=== PATIENT | male | born 1965 | race Caucasian/White ===

== ENCOUNTER → 2017-11-03 | Outpatient (CLI) | payer BC ==
[~2017-11-03] MED LIST: MULT1CAP17 PO
--- NOTE | 2017-11-03 14:01 | DIAGNOSTIC IMAGING REPORT ---
CHEST 2 VIEWS ROUTINE CLINICAL HISTORY: Preoperative evaluation. COMPARISON STUDY: No previous studies for comparison. FINDINGS: Lung volumes are normal. Lungs are clear. No pneumothorax or pleural effusion is present. Pulmonary vascularity is normal. Cardiomediastinal silhouette is normal. There is mild rightward curvature of the thoracic spine. IMPRESSION: No acute cardiopulmonary findings. Electronically signed by: Malik Miller M.D. 11/03/2017 2:00 PM Dictated Date/Time: 11/03/2017 1:59 PM
[2017-11-03 14:04] LABS: BASO ABS # 0.07 K/uL (0-0.2); COMPLETE YES; EOS % 4.1 %; HEMATOCRIT 39.9 % (42-52); IG% 0.3 %; LYMPH % 28.3 %; LYMPH ABS # 1.95 K/uL (1.2-3.4); MEAN CELL VOLUME 91.5 fL (80-100); MEAN CORPUSCULAR HEMOGLOBIN 30.5 pg (25-34); MEAN CORPUSCULAR HGB CONC 33.3 g/dl (32-36); MEAN PLATELET VOLUME 8.8 fL (7.4-10.4); MONO % 7.1 %; NEUT % 59.2 %; PLATELET COUNT 238 K/uL (130-400); RED BLOOD COUNT 4.36 M/uL (4.7-6.1); WHITE BLOOD COUNT 6.89 K/uL (4.8-10.8)
[2017-11-03 14:07] LABS: URINE APPEARANCE CLEAR (CLEAR); URINE BILIRUBIN NEG (NEG); URINE COLOR YELLOW; URINE NITRITE NEG (NEG); URINE SPECIFIC GRAVITY 1.023 (1.000-1.030); UROBILINOGEN NEG (NEG); ZZUR CULT IF INDIC CLEAN CATCH NO
[2017-11-03 14:08] LABS: MANUAL MICROSCOPIC REQUIRED? NO; REVIEW REQ? NO
[2017-11-03 14:13] LABS: PARTIAL THROMBOPLASTIN RATIO 1.1; PROTHROMBIN TIME (PATIENT) 10.3 SECONDS (9.0-12.0)
[2017-11-03 15:56] LABS: BLOOD UREA NITROGEN 13 mg/dl (7-18); CALCIUM 8.9 mg/dl (8.5-10.1); CARBON DIOXIDE 30 mmol/L (21-32); CHLORIDE 103 mmol/L (98-107); CREATININE 0.88 mg/dl (0.60-1.40); GLUCOSE 98 mg/dl (70-99); POTASSIUM 3.9 mmol/L (3.5-5.1); SODIUM 138 mmol/L (136-145)
[2017-11-04 06:15] LABS: ESTIMATED AVERAGE GLUCOSE 123 mg/dl; HA1C FLAG Normal (Normal)
== END | disposition home or self-care (01) ==
LOC: C.LAB 08:00
PROVIDERS: ATTEND Orthopaedic Surgery Sports Medicine

== ENCOUNTER 2017-12-02 04:57 | Inpatient (IN) | payer BC, OTHER ==
[2017-11-03 13:03] VITALS: BMI 24.0
--- NOTE | 2017-11-03 13:32 | PAT Medication Instructions ---
Service Date Nov 03, 2017. Current Home Medication List Multiple Vitamins W/ Minerals (Multi For Him), 1 TAB PO QAM Medication Instructions For Your Scheduled Surgery - Hold the following medications the morning of surgery: Multiple Vitamins W/ Minerals (Multi For Him), 1 TAB PO QAM nothing to eat or drink after midnight If you have any questions please call us at [phone] or [phone] or [phone]
--- NOTE | 2017-12-01 17:57 | HISTORY & PHYSICAL EXAMINATION ---
DATE OF ADMISSION: 12/02/2017 CHIEF COMPLAINT: Chronic right knee pain. HISTORY OF PRESENT ILLNESS: This is a 52-year-old male patient of Dr. Frye'robyn complaining of chronic right knee pain, longstanding, now progressively getting worse. The patient has been diagnosed with end-stage osteoarthritis per clinical and radiographic exams. The patient has failed conservative treatment including intraarticular injections, the use of anti-inflammatories, the use of a brace and the use of over the counter herbal such as turmeric. The patient has increased pain with weightbearing activities and his pain does interfere with his activities of daily living. PAST MEDICAL HISTORY: Sleep apnea with the use of CPAP, osteoarthritis, otherwise a healthy 52-year-old male. SOCIAL HISTORY: Nonsmoker, nondrinker. FAMILY HISTORY: Noncontributory. REVIEW OF SYSTEMS: The patient complains of chronic right knee pain, otherwise denies any shortness of breath, chest pain, nausea, vomiting or any other joint complaints. PAST SURGICAL HISTORY: Two arthroscopic surgeries on the right knee and one arthroscopic surgery on the left knee. MEDICATIONS: Include a multivitamin; otherwise, no prescription medicines. ALLERGIES: No known drug allergies. PHYSICAL EXAMINATION: GENERAL: Well-developed, well-nourished 52-year-old male in no acute distress. He is alert and oriented x3 and pleasant. HEENT: Normocephalic, atraumatic. Extraocular motions are intact. Pupils are equal and reactive to light. HEART: Regular rate and rhythm, no murmurs appreciated. LUNGS: Clear. ABDOMEN: Soft, nontender, bowel sounds present. EXTREMITIES: Right knee shows crepitation with passive range of motion. Range of motion is negative 5-120 degrees. He has a varus deformity. Ligaments are stable. He has 5/5 strength. NEUROLOGICALLY: Neurovascularly, he is intact in his right lower extremity. DIAGNOSES: Right knee end-stage osteoarthritis with a history of sleep apnea with the use of CPAP. PLAN: The patient was advised of his diagnosis. Indications, risks, benefits, and postop course have all been reviewed. The patient wishes to proceed with a right total knee arthroplasty. Necessary consent forms, preoperative testing and clearances will be obtained.
[~2017-12-02] VITALS: Ht 175.3 cm; Wt 74.0 kg
[2017-12-02] VITALS (8 sets, daily range): BP systolic 105–129; BP diastolic 62–88; PULSE 59–83; TEMP 36.4–36.9; O2SAT 98–100; Ht 175.3 cm; Wt 74.0 kg
[2017-12-02] MEDS ORDERED: LACTATED RINGER'S 1000ML 500 ML IV SCH (06:00)
[2017-12-02] MEDS ORDERED: FAMOTIDINE 20 MG TAB PO SCH (06:00)
[2017-12-02] MEDS ORDERED: CeleBREX 200 MG CAP PO SCH (06:00)
[2017-12-02] MEDS ORDERED: ROPIVACAINE 5MG/ML 30 ML 150 MG, BUPIVACAINE 0.5% MPF INJ 30 ML, EpINEphrine HCL INJ 0.... INFIL SCH ×8 (06:00)
[2017-12-02] MEDS ORDERED: LACTATED RINGER'S 1000ML IV SCH (06:00)
[2017-12-02] MEDS ORDERED: GABAPENTIN 300 MG CAP PO SCH (06:00)
[2017-12-02] MEDS ORDERED: METOCLOPRAMIDE HCL 10 MG TAB PO SCH (06:00)
[2017-12-02] MEDS ORDERED: DEXAMETHASONE 4 MG TAB PO SCH (06:00)
[2017-12-02] MEDS ORDERED: ACETAMINOPHEN 500 MG TAB PO SCH (06:00)
[2017-12-02] MEDS ORDERED: CEFAZOLIN 1000MG IV PUSH 5 ML IV SCH (06:00)
[2017-12-02] MEDS ORDERED: LACTATED RINGER'S 1000ML 1,000 ML IV SCH (06:00)
[2017-12-02] MEDS ORDERED: BUPIVACAINE 0.5 % 5 MG/1 ML PF 10ML VIAL ONE (06:03)
[2017-12-02] MEDS ORDERED: BUPIVACAINE 0.25% 30 ML VIAL ONE (06:03)
[2017-12-02] MEDS: TRANEXAMIC ACID INJ 1,000 MG in SYRINGE 0 ML IV SCH ×2 (06:50→10:52)
[2017-12-02] MEDS ORDERED: ORTHO JOINT ANESTHETIC ONE (06:59)
[2017-12-02] MEDS ORDERED: POVIDONE-IODINE OP SOLN 30 ML BTL ONE (06:59)
[2017-12-02] MEDS ORDERED: BACITRACIN 50000 UNIT VIAL ONE (07:00)
[2017-12-02] MEDS ORDERED: PHENYLEPHRINE HCL INJ 10 MG/ML VIAL ONE (07:13)
[2017-12-02] MEDS ORDERED: GLYCOPYRROLATE INJ 0.2 MG/ML VIAL ONE (07:13)
[2017-12-02] MEDS ORDERED: LIDOCAINE HCL 2% 2 ML VIAL (20MG/ML) ONE (07:13)
[2017-12-02] MEDS ORDERED: SUCCINYLCHOLINE CHLORIDE 20 MG/ML 10 ML VIAL IV ONE (07:13)
[2017-12-02] MEDS ORDERED: MIDAZOLAM HCL 1 MG/ML 2ML VIAL ONE (07:13)
[2017-12-02] MEDS ORDERED: EpHEDrine SULFATE INJ 50 MG/ML AMP ONE (07:13)
[2017-12-02] MEDS ORDERED: DEXAMETHASONE SOD INJ 4 MG/ML VIAL ONE (07:13)
[2017-12-02] MEDS ORDERED: PROPOFOL IV EMULSION 10 MG/ML 20 ML VIAL IV ONE ×2 (07:13→09:14)
[2017-12-02] MEDS ORDERED: FENTANYL CITRATE INJ 50 MCG/1 ML 2 ML VIAL ONE (07:13)
[2017-12-02] MEDS ORDERED: NEOSTIGMINE METHYLSULFATE 5 MG/5 ML SYR ONE (07:13)
[2017-12-02] MEDS ORDERED: ONDANSETRON INJ 2 MG/ML 2 ML VIAL ONE (07:13)
--- NOTE | 2017-12-02 07:29 | History & Physical Bridge Note ---
H&P Re-Evaluation Bridge Note: I have examined the patient, reviewed the History & Physical and in the interval since the performance of the History & Physical I have noted the following changes of clinical significance: No changes noted
[2017-12-02] MEDS ORDERED: FENTANYL CITRATE INJ 50 MCG/1 ML 2 ML VIAL IV PRN (07:30)
[2017-12-02] MEDS ORDERED: ATROPINE SULFATE 0.1 MG/ML 5ML SYR IV PRN (07:30)
[2017-12-02] MEDS ORDERED: EpHEDrine SULFATE INJ 50 MG/ML AMP IV PRN (07:30)
[2017-12-02] MEDS ORDERED: ONDANSETRON INJ 2 MG/ML 2 ML VIAL IV PRN ×2 (07:30→10:00)
--- NOTE | 2017-12-02 09:55 | [facility] Post Operative Brief Note ---
Immediate Operative Summary Operative Date Dec 02, 2017. Pre-Operative Diagnosis Right knee end stage osteoarthritis,lateral meniscal cyst,chronic acl tear Post-Operative Diagnosis same as preop Procedure(s) Performed Right total knee arthroplasty,excision lateral meniscal cyst Surgeon Dr. Frye Linesperson Surgeon(s) Fabrice Lew PA-C Estimated Blood Loss 10 ml Findings as above, grade 4 djd medial compartment and chronic acl tear Specimens A: Right knee bone and tissue Drains 2 hemovac Anesthesia spinal adductor block Complication(s) None Disposition Recovery Room / PACU
[2017-12-02] MEDS ORDERED: SOD PHOSPHATE/SOD BIPHOSPHATE ENEMA 132 ML BTL PR PRN (10:00)
[2017-12-02] MEDS ORDERED: ZOLPIDEM TARTRATE 5 MG TAB PO PRN (10:00)
[2017-12-02] MEDS ORDERED: BISACODYL 10 MG SUPP PR PRN (10:00)
[2017-12-02] MEDS ORDERED: MoRPHine SULFATE 2 MG/ML CARP IV PRN (10:00)
[2017-12-02] MEDS ORDERED: CEFAZOLIN IV 1,000 MG in DEXTROSE 5% 50ML 50 ML IV SCH (10:00)
[2017-12-02] MEDS ORDERED: METOCLOPRAMIDE HCL INJ 5 MG/ML 2 ML VIAL IV PRN (10:00)
[2017-12-02] MEDS ORDERED: MAGNESIUM HYDROXIDE SUSP 30 ML UDC PO PRN (10:00)
--- NOTE | 2017-12-02 10:32 | DIAGNOSTIC IMAGING REPORT ---
R KNEE 1 OR 2 VIEWS ROUTINE CLINICAL HISTORY: Degenerative arthritis. Postoperative study COMPARISON: None. DISCUSSION: There are postsurgical changes of a total right knee arthroplasty and patellar resurfacing. The femoral and tibial components appear well seated. Overlying skin elias and surgical drains are evident. There is air within the soft tissues consistent with recent surgery. IMPRESSION: Postsurgical changes of a total right knee arthroplasty. Electronically signed by: Jerry Hickman M.D. 12/02/2017 10:31 AM Dictated Date/Time: 12/02/2017 10:30 AM
--- NOTE | 2017-12-02 10:44 | OPERATIVE REPORT ---
DATE OF OPERATION: 12/02/2017 INDICATION FOR PROCEDURE: The patient is a 52-year-old male with chronic right knee pain. He has a history of previous right knee surgery in the past. He has had progressive osteoarthritis in his knee. He has a significant varus thrust, lateral collateral ligament laxity, tight medial compartment with some pseudolaxity, chronic ACL tear, prior incisions from prior open surgery, surgical procedure unknown. Radiographs demonstrate [id number] in the medial compartment with some subluxation of the femur and the tibia. PREOPERATIVE DIAGNOSIS: Right knee end-stage osteoarthritis with knee instability, chronic anterior cruciate ligament tear and also a lateral meniscal cyst. POSTOPERATIVE DIAGNOSIS: Same. PROCEDURE: Right total knee arthroplasty, excision lateral meniscus cyst. SURGEON: Robles Frye MD. HOSE INSPECTOR AND PATCHER: SHAQ Carrillo. ANESTHESIA: Spinal, adductor nerve block and Orthomix. OPERATIVE PROCEDURE: The patient was taken to the operating room, anesthetized under anesthesia as dictated. She was placed supine on the operating room table. Pneumatic tourniquet was placed about right upper thigh. Knee exam demonstrated he did have some knee hyperextension, he did have some pseudolaxity medially, but had significant lateral collateral ligament laxity and marked varus alignment to his right knee. He had 2 incisions from prior open surgery. Positive Miranda exam. No endpoint. His right lower extremity was prepped and draped with ChloraPrep in usual sterile fashion. We did have a pneumatic tourniquet about his right upper thigh. His leg was elevated, exsanguinated with Esmarch bandage. Pneumatic tourniquet was raised to 300 mmHg. Anterior incision made across the right knee. Skin was incised sharply. Subcutaneous flaps were thin. Fat tissues were elevated. A paramedian arthrotomy type incision was made through the medial retinaculum extended up into the mid third of the quadriceps tendon and down to the medial tibial tubercle. Intraarticular findings demonstrated absent ACL [id number] medial compartment subluxation of femur medial and the tibia and he had a large meniscal cyst which was about 2 cm, this was a complex cyst anterior to the lateral collateral ligament extending to the lateral meniscus with a degenerative lateral meniscus tear. There were some multiloculated cysts that were adjacent to the capsule in that area. There were some tricompartmental osteophytes. The PCL was still intact. There was jeoc-qu-dpph medial compartment. I used the John [employer] Nephew Journey 2.0, total knee arthroplasty system using Guides[employer]coaire MRI templating. Femur templated for a 6, tibia for a 5. The exposure performed required excising the scarred infrapatellar fat pad, excising the meniscal remnants on the medial side. The lateral meniscus was excised. I carefully dissected around the lateral knee area. We used surgical scissors and electrocautery as well and identified the cyst being adjacent to the IT band anterior to the lateral collateral ligament. This was dissected out and followed out into the lateral meniscus area where there was degeneration of the lateral meniscus and some other multiloculated cyst which were all resected completely. The lateral meniscus was resected. The PCL was resected. There were some lateral synovial bands that were released. There were some diffuse adhesions in the lateral suprapatellar pouch that were removed and small portion of the fat pad over the anterior femur was resected to place the femoral component in that area just above the joint line. The femur was exposed with retractors. The custom femoral cutting block was pinned in position and the distal femoral cut was made. The size 6 5-1 cutting block was pinned in position for the Journey 2.0 John [employer] Nephew knee replacement. The anterior, posterior and chamfer cuts were made. The patient had very hard bone and we had to irrigate during the bone cuts. The knee was then extended. Then we did a subperiosteal peel lateral release around the patella. The patella cut was made reproducing the width with a 38 patellar component. Drill holes were made and the excess lateral facet was beveled off to prevent any impingement. Then the tibia was subluxed and the custom tibial cutting block was pinned in position. The proximal tibial cut was made. Then we used the lamina hat forming machine feeder to assess ligamentous balance. He had some posteromedial tightness in flexion of the knee, so we had to do a posteromedial release to balance the ligaments and pie crust the MCL as well. With the tibia exposed, then after we did the tibial cut, the tibial trial size 5 was externally rotated in line with the tibial tubercle and pinned in position and punch for the stem was used. Because of the sclerotic medial side of the tibial bone, we did place some drill holes to enhance cement fixation. This was done prior to placing the trial. After the punch for the stem was used, we placed the femoral component in place and centered it and then the notch cutting devices were used. A collet was placed and a 13 poly insert gave balanced ligaments through full range of motion and the patella tracked centrally. The trials were removed. The anesthetic cocktail of Orthomix was injected per protocol. The knee was then copiously irrigated with pulsatile lavage antibiotic solution with bacitracin. Bony surfaces were dried. The final components were cemented with Simplex G cement. The final components were the 6 Oxinium posterior stabilized John & Nephew Journey right femoral component, the 5 tibial baseplate, the 30 mm poly high flex insert posterior stabilized and the 38 patella. While the cement cured, we used Betadine soak per protocol. The knee was copiously irrigated with antibiotic solution and bacitracin. After the cement cured, the 2 drains were brought out laterally and connected to Hemovac. The quadriceps tendon and medial retinaculum were closed with interrupted [id number]-[id number] #1 Vicryl sutures. The knee was taken through full range of motion and repair was secured. The subcutaneous tissues closed with interrupted 2-0 Vicryl, skin was closed with elias and Silverlon sterile dressing was applied. The tourniquet was let down. The patient had good capillary refill to the extremity. The patient tolerated the procedure well. SHAQ Carrillo was my veterinary technician assistant and he functioned as veterinary technician assistant through the entire procedure. He assisted in patient positioning, soft tissue retraction, instrument management, assisted in the subcutaneous and skin closure and will participate in postoperative care of the patient. I attest to the content of the Intraoperative Record and any orders documented therein. Any exception s are noted below.
--- NOTE | 2017-12-02 10:50 | Anesthesiology Progress Note ---
Anesthesia Post Op Note Date & Time Dec 02, 2017 at 10:50 Vital Signs Pain Intensity: 0 Vital Signs Past 12 Hours Date Time Temp Pulse Resp B/P (MAP) Pulse Ox O2 Delivery O2 Flow Rate FiO2 12/02/17 10:40 59 15 101/61 100 Nasal Cannula 2 12/02/17 10:30 58 16 94/65 100 Nasal Cannula 2 12/02/17 10:20 58 16 101/66 100 Nasal Cannula 2 12/02/17 10:10 63 16 112/70 100 Oxymask 10 12/02/17 10:00 63 16 99/63 100 Oxymask 10 12/02/17 09:53 36.0 70 16 111/72 100 Oxymask 10 12/02/17 06:06 36.6 79 16 114/88 99 Room Air Notes Mental Status: alert / awake / arousable, participated in evaluation Pt Amnestic to Procedure: Yes Nausea / Vomiting: adequately controlled Pain: adequately controlled Airway Patency, RR, SpO2: stable & adequate BP & HR: stable & adequate Hydration State: stable & adequate Neuraxial Anesthesia: was administered, sensory block is resolving Anesthetic Complications: no major complications apparent
[2017-12-02] MEDS: D5W AND 1/2NSS + 20MEQ KCL 1,000 ML IV SCH ×2 (11:52→21:49)
[2017-12-02] MEDS: CEFAZOLIN IV 1,000 MG in SYRINGE 0 ML IV SCH (15:45)
[2017-12-02] MEDS: TRAMADOL HCL 50 MG TAB PO PRN (18:39)
[2017-12-02] MEDS: OXYCODONE HCL IR 5 MG TAB (IMMEDIATE RELEASE) PO PRN ×2 (20:13→20:46)
[2017-12-02] MEDS: ASPIRIN 81 MG ECTAB PO SCH (21:14)
[2017-12-02] MEDS: DOCUSATE SODIUM 100 MG CAP PO SCH (21:14)
[2017-12-02] MEDS: CeleBREX 200 MG CAP PO SCH (21:15)
[2017-12-03] MEDS: CEFAZOLIN IV 1,000 MG in SYRINGE 0 ML IV SCH
[2017-12-03 02:55] VITALS: BP 101/55; PULSE 66; TEMP 36.5; O2SAT 98
[2017-12-03 06:02] LABS: HEMATOCRIT 34.4 % (42-52); HEMOGLOBIN 11.3 g/dL (14.0-18.0); MEAN CELL VOLUME 89.8 fL (80-100); MEAN CORPUSCULAR HEMOGLOBIN 29.5 pg (25-34); MEAN CORPUSCULAR HGB CONC 32.8 g/dl (32-36); MEAN PLATELET VOLUME 8.8 fL (7.4-10.4); PLATELET COUNT 191 K/uL (130-400); RED CELL DISTRIBUTION WIDTH CV 12.7 % (11.5-14.5); RED CELL DISTRIBUTION WIDTH SD 41.1 fL (36.4-46.3); WHITE BLOOD COUNT 16.75 K/uL (4.8-10.8)
[2017-12-03 06:33] LABS: CALCIUM 8.4 mg/dl (8.5-10.1); CREATININE 0.92 mg/dl (0.60-1.40); POTASSIUM 4.2 mmol/L (3.5-5.1)
[2017-12-03] MEDS: D5W AND 1/2NSS + 20MEQ KCL 1,000 ML IV SCH (07:45)
--- NOTE | 2017-12-03 08:09 | Orthopedic Progress Note ---
Orthopedic Progress Note Date of Service Dec 03, 2017. Subjective Post OP Day: 1 Reports: feeling well, Denies: chest pain, SOB, nausea / vomiting, light headedness, calf pain Objective calves soft nontender, N/V intact, capillary refill less than 2 sec., dressing C /D/I, A&O x3, toes mobile, hemovac drainage (495/380cc per shift) Date Time Temp Pulse Resp B/P (MAP) Pulse Ox O2 Delivery O2 Flow Rate FiO2 12/03/17 02:55 36.5 66 18 101/55 (70) 98 Nasal Cannula 2.0 12/03/17 00:10 Nasal Cannula 2.0 12/02/17 23:06 36.6 74 18 108/62 (77) 98 Nasal Cannula 2.0 12/02/17 15:30 Nasal Cannula 2.0 12/02/17 15:16 36.4 78 18 106/66 (79) 98 Nasal Cannula 2.0 12/02/17 14:00 36.6 81 17 105/68 (80) 98 Nasal Cannula 2.0 12/02/17 13:00 36.9 83 16 129/78 (95) 98 Nasal Cannula 2.0 12/02/17 12:06 36.4 79 16 112/69 (83) 99 Nasal Cannula 12/02/17 11:30 36.4 67 16 107/65 (79) 99 Nasal Cannula 2.0 12/02/17 11:00 36.5 59 14 106/62 (77) 100 Nasal Cannula 2.0 12/02/17 11:00 Nasal Cannula 2.0 12/02/17 10:50 36.0 58 15 96/59 100 Nasal Cannula 2 12/02/17 10:40 59 15 101/61 100 Nasal Cannula 2 12/02/17 10:30 58 16 94/65 100 Nasal Cannula 2 12/02/17 10:20 58 16 101/66 100 Nasal Cannula 2 12/02/17 10:10 63 16 112/70 100 Oxymask 10 12/02/17 10:00 63 16 99/63 100 Oxymask 10 12/02/17 09:53 36.0 70 16 111/72 100 Oxymask 10 Laboratory Results 24 Hours: Test 12/03/17 05:48 Hematocrit 34.4 % Hemoglobin 11.3 g/dL Assessment & Plan Assessment: POD#1 sp right TKA Plan: PT/OT DVT proph- ASA 81mg bid Pain management- Tylenol, Mary DC planning- DC home with HH Thursday due to hemovac output.
--- NOTE | 2017-12-03 08:39 | Medical Consult ---
Consultation Date of Consultation: Dec 03, 2017. Attending Physician: Robles Frye M.D. Reason for Consultation: Patient was consulted for medical management. History of Present Illness Patient has no complaints today except for pain from his TKA. Patient denies nausea, vomiting. Social History Smoking Status: Never Smoker Smokeless Tobacco Use: No Alcohol Use: none Allergies Coded Allergies: No Known Allergies (Unverified , 11/03/17) Current Inpatient Medications Current Inpatient Medications Medications (Trade) Dose Ordered Sig/Saray Route Start Time Stop Time Status Last Admin Dose Admin Potassium Chloride/Dextrose/ Sod Cl 1,000 ml @ 100 mls/hr Q10H IV 12/02/17 12:00 12/03/17 11:59 12/02/17 21:49 100 MLS/HR Celecoxib (CeleBREX CAP) 200 mg BID PO 12/02/17 21:00 01/01/18 20:59 12/02/17 21:15 200 MG Oxycodone HCl (Roxicodone Immediate Rel Tab) 1 TABLET FOR PAIN RATING... Q4H PRN PO 12/02/17 10:00 12/16/17 09:59 12/02/17 20:46 5 MG Morphine Sulfate (MoRPHine SULFATE INJ) FOR PAIN, 2-4MG 2MG FOR P... Q2H PRN IV 12/02/17 10:00 12/16/17 09:59 Magnesium Hydroxide (Milk Of Magnesia Susp) 30 ml Q6H PRN PO 12/02/17 10:00 01/01/18 09:59 Bisacodyl (Dulcolax Supp) 10 mg DAILY PRN NM 12/02/17 10:00 01/01/18 09:59 Sodium Biphosphate/ Sodium Phosphate (Fleet Enema) 132 ml DAILY PRN NM 12/02/17 10:00 01/01/18 09:59 Docusate Sodium (coLACE CAP) 100 mg BID PO 12/02/17 21:00 01/01/18 20:59 12/02/17 21:14 100 MG Diphenhydramine HCl (Benadryl Cap) 25 mg Q8H PRN PO 12/02/17 10:00 01/01/18 09:59 Zolpidem Tartrate (Ambien Tab) 5 mg HSZ PRN PO 12/02/17 10:00 01/01/18 09:59 Multivitamins (Multivitamin Tab) 1 tab QAM PO 12/03/17 09:00 01/02/18 08:59 Ondansetron HCl (Zofran Inj) 4 mg Q6H PRN IV 12/02/17 10:00 01/01/18 09:59 Metoclopramide HCl (Reglan Inj) 10 mg Q6H PRN IV 12/02/17 10:00 01/01/18 09:59 Pantoprazole Sodium (Protonix Tab) 40 mg QAM PO 12/03/17 09:00 12/06/17 08:59 Tramadol HCl (Ultram Tab) 1 tablet for pain rating... Q4H PRN PO 12/02/17 10:00 01/01/18 09:59 12/02/17 18:39 50 MG Aspirin (Ecotrin Tab) 81 mg BID PO 12/02/17 21:00 01/01/18 20:59 12/02/17 21:14 81 MG Review of Systems Constitutional: No fever, No chills Respiratory: No cough, No sputum Cardiovascular: No chest pain, No orthopnea Abdomen: No pain, No nausea Musculoskeletal: + joint pain Genitourinary - Male: No hematuria Neurologic: No memory loss, No paralysis Psychiatric: No depression symptoms, No anhedonism Endocrine: No fatigue Hematologic / Lymphatic: No abnormal bleeding/bruising Integumentary: No rash, No itch Allergic / Immunologic: No environmental allergies Physical Exam Date Time Temp Pulse Resp B/P (MAP) Pulse Ox O2 Delivery O2 Flow Rate FiO2 12/03/17 02:55 36.5 66 18 101/55 (70) 98 Nasal Cannula 2.0 12/03/17 00:10 Nasal Cannula 2.0 12/02/17 23:06 36.6 74 18 108/62 (77) 98 Nasal Cannula 2.0 12/02/17 15:30 Nasal Cannula 2.0 12/02/17 15:16 36.4 78 18 106/66 (79) 98 Nasal Cannula 2.0 12/02/17 14:00 36.6 81 17 105/68 (80) 98 Nasal Cannula 2.0 12/02/17 13:00 36.9 83 16 129/78 (95) 98 Nasal Cannula 2.0 12/02/17 12:06 36.4 79 16 112/69 (83) 99 Nasal Cannula 12/02/17 11:30 36.4 67 16 107/65 (79) 99 Nasal Cannula 2.0 12/02/17 11:00 36.5 59 14 106/62 (77) 100 Nasal Cannula 2.0 12/02/17 11:00 Nasal Cannula 2.0 12/02/17 10:50 36.0 58 15 96/59 100 Nasal Cannula 2 12/02/17 10:40 59 15 101/61 100 Nasal Cannula 2 12/02/17 10:30 58 16 94/65 100 Nasal Cannula 2 12/02/17 10:20 58 16 101/66 100 Nasal Cannula 2 12/02/17 10:10 63 16 112/70 100 Oxymask 10 12/02/17 10:00 63 16 99/63 100 Oxymask 10 12/02/17 09:53 36.0 70 16 111/72 100 Oxymask 10 General Appearance: WD/WN, no apparent distress Head: normocephalic Neck: supple, no adenopathy Respiratory/Chest: chest non-tender, lungs clear, normal breath sounds Cardiovascular: regular rate, rhythm, no edema Abdomen/GI: normal bowel sounds, non tender, soft Extremities/Musculoskelatal: normal inspection, no calf tenderness Skin: normal color Lymphatic: no adenopathy Laboratory Results Last 24 Hours Test 12/03/17 05:48 White Blood Count 16.75 K/uL Red Blood Count 3.83 M/uL Hemoglobin 11.3 g/dL Hematocrit 34.4 % Mean Corpuscular Volume 89.8 fL Mean Corpuscular Hemoglobin 29.5 pg Mean Corpuscular Hemoglobin Concent 32.8 g/dl RDW Standard Deviation 41.1 fL RDW Coefficient of Variation 12.7 % Platelet Count 191 K/uL Mean Platelet Volume 8.8 fL Sodium Level 137 mmol/L Potassium Level 4.2 mmol/L Chloride Level 104 mmol/L Carbon Dioxide Level 28 mmol/L Anion Gap 5.0 mmol/L Blood Urea Nitrogen 13 mg/dl Creatinine 0.92 mg/dl Est Creatinine Clear Calc Drug Dose 92.9 ml/min Estimated GFR () 109.7 Estimated GFR (Non- 94.6 BUN/Creatinine Ratio 13.6 Random Glucose 141 mg/dl Calcium Level 8.4 mg/dl Assessment & Plan 52 yo patient who has a R TKA, consulted for medical management. Patient reports feeling well. Pain medicine appears to be adequate. Patient is ambulating with crutches and is using incentive spirometer to decrease risk of pneumonia. No medical conditions to be managed at this time. Will sign off case. Please call if any questions or if new concerns arise.
--- NOTE | 2017-12-03 08:50 | Anesthesiology Progress Note ---
Anesthesia Post Op Note Date & Time Dec 03, 2017 at 08:50 Vital Signs Pain Intensity: 3.0 Vital Signs Past 12 Hours Date Time Temp Pulse Resp B/P (MAP) Pulse Ox O2 Delivery O2 Flow Rate FiO2 12/03/17 07:15 Room Air 12/03/17 02:55 36.5 66 18 101/55 (70) 98 Nasal Cannula 2.0 12/03/17 00:10 Nasal Cannula 2.0 12/02/17 23:06 36.6 74 18 108/62 (77) 98 Nasal Cannula 2.0 Notes Mental Status: alert / awake / arousable, participated in evaluation Pt Amnestic to Procedure: Yes Nausea / Vomiting: adequately controlled Pain: adequately controlled Airway Patency, RR, SpO2: stable & adequate BP & HR: stable & adequate Hydration State: stable & adequate Anesthetic Complications: no major complications apparent
[2017-12-03] MEDS: PANTOprazole SOD 40 MG TAB PO SCH (08:51)
[2017-12-03] MEDS: ASPIRIN 81 MG ECTAB PO SCH ×2 (08:51→20:46)
[2017-12-03] MEDS: DOCUSATE SODIUM 100 MG CAP PO SCH ×2 (08:51→20:46)
[2017-12-03] MEDS: MULTIVITAMIN TAB PO SCH (08:51)
[2017-12-03] MEDS: CeleBREX 200 MG CAP PO SCH ×2 (08:53→20:46)
[2017-12-03] MEDS: OXYCODONE HCL IR 5 MG TAB (IMMEDIATE RELEASE) PO PRN ×3 (09:00→20:44)
[2017-12-03] MEDS: TRAMADOL HCL 50 MG TAB PO PRN (11:31)
[2017-12-03 15:04] VITALS: BP 96/55; PULSE 68; TEMP 36.4; O2SAT 96
[2017-12-03 16:14] VITALS: BP 114/70; PULSE 68; O2SAT 99
[2017-12-03 16:26] LABS: HEMATOCRIT 31.2 % (42-52); HEMOGLOBIN 10.4 g/dL (14.0-18.0); MEAN CELL VOLUME 90.7 fL (80-100); MEAN CORPUSCULAR HEMOGLOBIN 30.2 pg (25-34); MEAN CORPUSCULAR HGB CONC 33.3 g/dl (32-36); MEAN PLATELET VOLUME 8.8 fL (7.4-10.4); PLATELET COUNT 171 K/uL (130-400); RED CELL DISTRIBUTION WIDTH CV 13.1 % (11.5-14.5); RED CELL DISTRIBUTION WIDTH SD 42.8 fL (36.4-46.3); WHITE BLOOD COUNT 13.55 K/uL (4.8-10.8)
[2017-12-03 22:57] VITALS: BP 98/58; PULSE 76; TEMP 36.7; O2SAT 97
[2017-12-04] MEDS: OXYCODONE HCL IR 5 MG TAB (IMMEDIATE RELEASE) PO PRN ×2 (02:46→07:32)
[2017-12-04 06:16] VITALS: BP 97/56; PULSE 79; TEMP 36.6; O2SAT 94
[2017-12-04 06:21] LABS: HEMOGLOBIN 9.4 g/dL (14.0-18.0); MEAN CELL VOLUME 91.2 fL (80-100); MEAN CORPUSCULAR HEMOGLOBIN 30.6 pg (25-34); MEAN CORPUSCULAR HGB CONC 33.6 g/dl (32-36); MEAN PLATELET VOLUME 8.9 fL (7.4-10.4); PLATELET COUNT 163 K/uL (130-400); RED CELL DISTRIBUTION WIDTH CV 13.3 % (11.5-14.5); RED CELL DISTRIBUTION WIDTH SD 43.8 fL (36.4-46.3); WHITE BLOOD COUNT 9.14 K/uL (4.8-10.8)
[2017-12-04 06:59] LABS: CREATININE 1.03 mg/dl (0.60-1.40); POTASSIUM 4.1 mmol/L (3.5-5.1)
[2017-12-04] MEDS: PANTOprazole SOD 40 MG TAB PO SCH (07:28)
[2017-12-04] MEDS: ASPIRIN 81 MG ECTAB PO SCH (07:28)
[2017-12-04] MEDS: DOCUSATE SODIUM 100 MG CAP PO SCH (07:28)
[2017-12-04] MEDS: CeleBREX 200 MG CAP PO SCH (07:28)
[2017-12-04] MEDS: MULTIVITAMIN TAB PO SCH (07:28)
[2017-12-04] MEDS ORDERED: CLB200 PO (07:52)
[2017-12-04] MEDS ORDERED: ASPEC81 PO (07:52)
[2017-12-04] MEDS ORDERED: RXC5 PO (07:52)
[2017-12-04] MEDS ORDERED: ACET-1138 PO (07:52)
--- NOTE | 2017-12-04 07:53 | Discharge Instructions ---
Discharge Instructions Date of Service Dec 04, 2017. Admission Reason for Admission: Right Knee Degenerative Joint Disease Discharge Discharge Diagnosis / Problem: Right TKA Discharge Goals Goal(s): Improve function Activity Recommendations Activity Limitations: as noted below . Instructions / Follow-Up Instructions / Follow-Up ACTIVITY RECOMMENDATIONS: SELF CARE INSTRUCTIONS AFTER TOTAL KNEE REPLACEMENT A. You may need to continue a physical therapy program after discharge from the hospital. There are several options available to you. Your doctor will assist you in selecting the best one for you. 1. An out-patient facility 2 to 3 times a week for therapy or home therapy. 2. Continue working on all exercises taught to you in the hospital. Your goals should be to increase bending of your knee to 90 degrees and beyond and to fully straighten your knee. B. You may progress at your own pace from walking with a walker or crutches to a cane; then to no assistive devices. C. Make walking a part of your daily routine. Be up as much as comfortable with rest periods throughout the day. Rest with leg elevation is very important. Use the ice wrap frequently for the first 3-4 weeks. D. There are no restrictions on activities. You may ride in a car, shop, participate in order make up clerk and all social activities. E. Wear the long elastic stockings (JONY hose) 20 hours a day for 2 weeks after surgery. They can be removed several times a day for laundering and for a bath. F. You may shower, no tub baths until cleared by your doctor. SPECIAL CARE INSTRUCTIONS: VERY IMPORTANT TO READ AND REVIEW A. There are a few signs you need to watch for after you are home. Call [facility] if you notice any of the followin. Increased severe knee pain. Some pain is expected especially when you exercise. 2. Increased swelling in your leg or knee; pain or swelling of the calf muscle in either lower leg. 3. Any fluid drainage from the incision. 4. Shortness of breath or chest pain. B. Please call [facility] at if you have any concerns or questions about your operation or recovery. The doctor or his nurse will return your call promptly. C. You must take antibiotics before dental work, bladder, bowel or other surgery. Your doctor will provide you with a permanent care to carry describing this precaution. IMPORTANT: * REMEMBER TO TAKE ASPIRIN, 81 MG, TWICE DAILY FOR 4 WEEKS UNLESS OTHERWISE DIRECTED. THIS IS YOUR BLOOD THINNER. * HIGH RISK PATIENTS MAY BE PRESCRIBED A STRONGER BLOOD THINNER. THIS WILL BE PROVIDED AT DISCHARGE. * CALL IF INCREASED PAIN, REDNESS, DRAINAGE OR FEVER GREATER THAT 101. * WEAR JONY HOSE 20 HOURS PER DAY FOR 2 WEEKS. * YOU MAY HAVE A LARGE BAND-AID LIKE DRESSING (SILVERON). THIS WILL REMAIN ON YOUR INCISION FOR 7 DAYS, THEN CAN BE REMOVED. IF INCISION IS LEAKING THROUGH DRESSING, CALL THE OFFICE . FOLLOW UP VISIT: If appointment is not already scheduled: Please call [facility] to make a follow-up appointment for 2 weeks after your surgery at . Current Hospital Diet Patient's current hospital diet: Regular Diet Discharge Diet Recommended Diet: Regular Diet Procedures Procedures Performed: Right total knee arthroplasty,excision lateral meniscal cyst Pending Studies Studies pending at discharge: no Laboratory Results Hemoglobin A1c Test 11/03/17 13:42 Range/Units Estimated Average Glucose 123 mg/dl Hemoglobin A1c 5.9 H 4.5-5.6 % Medical Emergencies . Who to Call and When: Medical Emergencies: If at any time you feel your situation is an emergency, please call 911 immediately. . Non-Emergent Contact Non-Emergency issues call your: Primary Care Provider . "Provider Documentation" section prepared by Fabrice Lew. . VTE Core Measure Inpt VTE Proph given/why not?: Other Anticoagulation (asa), T.E.D. Stockings, SCD's [place] Drug Monitoring Program Search Results: patient reviewed within database, no issues identified
--- NOTE | 2017-12-04 07:53 | Orthopedic Progress Note ---
Orthopedic Progress Note Date of Service Dec 04, 2017. Subjective Post OP Day: 2 Reports: feeling well, Denies: chest pain, SOB, nausea / vomiting, light headedness, calf pain Objective calves soft nontender, N/V intact, capillary refill less than 2 sec., dressing C /D/I, A&O x3, toes mobile Date Time Temp Pulse Resp B/P (MAP) Pulse Ox O2 Delivery O2 Flow Rate FiO2 12/04/17 06:16 36.6 79 18 97/56 (70) 94 Room Air 12/03/17 22:57 36.7 76 18 98/58 (71) 97 Room Air 12/03/17 20:45 Room Air 12/03/17 16:14 68 16 114/70 (85) 99 Room Air 12/03/17 15:45 Room Air 12/03/17 15:04 36.4 68 16 96/55 (69) 96 Room Air Laboratory Results 24 Hours: Test 12/03/17 16:17 12/04/17 05:51 Hematocrit 31.2 % 28.0 % Hemoglobin 10.4 g/dL 9.4 g/dL Assessment & Plan Assessment: POD#2 sp right TKA Plan: PT/OT DVT proph- ASA 81mg bid Pain management- Tylenol, Mary DC planning- DC home TODAY AFTER PT
[2017-12-04 08:30] VITALS: O2SAT 98
[2017-12-04 08:45] VITALS: BP 97/56; PULSE 79; TEMP 36.6; O2SAT 98
--- NOTE | 2017-12-18 12:45 | DISCHARGE SUMMARY ---
HISTORY OF PRESENT ILLNESS: This is a 52-year-old male patient of Dr. Frye's complaining of chronic right knee pain, long-standing, now progressively getting worse. The patient was diagnosed with end-stage osteoarthritis and elected to proceed with a right total knee arthroplasty. PAST MEDICAL HISTORY: Sleep apnea with the use of CPAP, osteoarthritis. POSTOPERATIVE COURSE: The patient underwent a right total knee arthroplasty on 12/02/2017. He was followed closely with therapy, pain control and DVT in the form of aspirin. He did well postoperatively and was discharged home on postoperative day #2. PHYSICAL EXAMINATION: On discharge right knee incision was clean, dry and intact. Silverlon was intact. There was no redness or drainage. He had no calf tenderness. Negative Homans sign. Neurologically and neurovascularly he was intact in his right lower extremity. DIAGNOSIS: Status post right total knee arthroplasty with a history of sleep apnea. PLAN: The patient was discharged home with home health services. Will continue his aspirin for DVT prophylaxis. He will continue his preadmission medications with the addition of pain medications and will follow up with Dr. Frye as scheduled as an outpatient.
== END 2017-12-04 14:41 | disposition home health service (06) | DRG 470 ==
LOC: C.ACU 04:57 → C.3E 07:00 → ENRESERV 10:16
PROVIDERS: ADMIT Orthopaedic Surgery Sports Medicine; ATTEND Orthopaedic Surgery Sports Medicine
PROC: 0SRC0J9 Replacement of Right Knee Joint with Synthetic Substitute, Cemented, Open Approach (ICD-10-PCS; principal; 2017-12-02 07:30)
PROC: 0SBC0ZZ Excision of Right Knee Joint, Open Approach (ICD-10-PCS; principal; 2017-12-02 07:30)
DX: M17.11 Unilateral primary osteoarthritis, right knee (principal); M23.000 Cystic meniscus, unspecified lateral meniscus, right knee; S83.511S Sprain of anterior cruciate ligament of right knee, sequela; G47.30 Sleep apnea, unspecified; X58.XXXS Exposure to other specified factors, sequela